=== PATIENT | female | born 2000 | race Hispanic/Latino ===

== ENCOUNTER 2021-02-07 07:57 | Outpatient (CLI) | payer OTHER ==
[2021-02-07 15:39] LABS: SARS-CoV-2 PCR by NAA Not Detected (NotDetected)
== END 2021-02-07 07:58 | disposition home or self-care (01) ==
LOC: CSHLAB 07:57
PROVIDERS: ATTEND Obstetrics & Gynecology
DX: Z20.822 Contact with and (suspected) exposure to COVID-19 (principal)
CPT/HCPCS: 87635; U0003; U0005

== ENCOUNTER 2021-02-12 19:00 | Inpatient (IN) | payer MEDICAID, OTHER, SELFPAY ==
[2021-02-13] MEDS ORDERED: Ibuprofen 800 MG TAB PO PRN (06:30)
[2021-02-13] MEDS ORDERED: hydrALAZINE 20 MG/ML VIAL SLOW IVP PRN ×2 (06:30→16:27)
[2021-02-13] MEDS ORDERED: NS / Oxytocin 40 units/1000ml 1,000 ML IV PRN (06:30)
[2021-02-13] MEDS ORDERED: Acetaminophen 500 MG TAB PO PRN (06:30)
[2021-02-13] MEDS ORDERED: Promethazine HCl 25 MG/ML VIAL IM PRN (06:30)
[2021-02-13] MEDS ORDERED: Lactated Ringer's 1,000 ML IV SCH (06:30)
[2021-02-13] MEDS ORDERED: Docusate 100 MG CAP PO PRN (06:30)
[2021-02-13] MEDS ORDERED: Misoprostol 200 MCG TAB PR PRN (06:30)
[2021-02-13] MEDS ORDERED: Ondansetron PF 4 MG/2 ML Vial IVP PRN ×2 (06:30→16:27)
[2021-02-13] MEDS ORDERED: Penicillin G Potassium 5 MILL.UNITS in Sodium Chloride 0.9% 100 ML IVPB SCH (06:30)
[2021-02-13] MEDS ORDERED: Lidocaine 1% (PF) 30 ML VIAL SC PRN (06:30)
[2021-02-13 06:47] VITALS: BMI 25.7
[2021-02-13 07:02] LABS: Hemoglobin 12.3 g/dL (12.0-15.5); Mean Corpuscular HGB CONC 33.8 g/dL (32.0-36.0); Mean Corpuscular Hemoglobin 29.6 pg (27.0-33.0); Mean Corpuscular Volume 87.7 fl (81.6-98.3); Mean Platelet Volume 12.1 fl (7.4-10.4); Platelet Count 195 10x3/uL (150-450); RBC Distribution Width 13.7 % (11.5-14.5); Red Blood Cell (RBC) Count 4.15 10x6/uL (3.90-5.03); White Blood Cell (WBC) Count 9.5 10x3/uL (3.5-10.5)
[2021-02-13] MEDS ORDERED: NS w/ Oxytocin 30 units 500 ML ONE ×2 (07:06→14:58)
[2021-02-13 08:04] LABS: Hep B Surf Ag Non-Reactive S/CO (NonReactive)
[2021-02-13 08:05] LABS: Syphilis Antibody Nonreactive (Nonreactive); Syphilis Antibody Index 0.04 S/CO (<1.00 Non-Reactive)
[2021-02-13 08:34] LABS: HBSAg Index 0.14 S/CO (0-0.99)
[2021-02-13] MEDS: Penicillin G 2.5 MILL.units 2.5 MILL.UNITS in Premix Bag 1 BAG IVPB SCH ×3 (12:35→20:54)
[2021-02-13] MEDS ORDERED: NS w/ Oxytocin 30 units 500 ML IVPB PRN (15:22)
[2021-02-13] MEDS ORDERED: NS w/ Oxytocin 30 units 500 ML IVPB SCH (15:30)
[2021-02-13] MEDS ORDERED: diphenhydrAMINE 25 MG CAP PO PRN (16:27)
[2021-02-13] MEDS ORDERED: Methylergonovine 0.2 MG TAB PO PRN (16:27)
[2021-02-13] MEDS ORDERED: Bisacodyl 10 MG SUPP PR PRN (16:27)
[2021-02-13] MEDS ORDERED: Preparation H Ointment 28 GM TUBE PR PRN (16:27)
[2021-02-13] MEDS ORDERED: Lanolin Ointment 7 GM TUBE TOP PRN (16:27)
[2021-02-13] MEDS ORDERED: Misoprostol 200 MCG TAB VAG PRN (16:27)
[2021-02-13] MEDS: Ibuprofen 800 MG TAB PO SCH (22:45)
[2021-02-14] MEDS: Ibuprofen 800 MG TAB PO SCH ×2 (05:26→14:30)
[2021-02-14] MEDS ORDERED: Prenatal Vitamin 1 TAB PO SCH (09:00)
[2021-02-14 11:32] VITALS: BP 107/57; TEMP 97.9
== END 2021-02-14 17:24 | disposition home or self-care (01) | DRG 806 ==
LOC: CSHLD 02-13 05:51 → CSHPP 02-13 17:36
PROVIDERS: ADMIT Family Medicine; ATTEND Family Medicine
PROC: 4A0HXCZ Measurement of Products of Conception, Cardiac Rate, External Approach (ICD-10-PCS; principal; 2021-02-14)
PROC: 10E0XZZ Delivery of Products of Conception, External Approach (ICD-10-PCS; 2021-02-14)
DX: O76 Abnormality in fetal heart rate and rhythm complicating labor and delivery (principal); Q21.0 Ventricular septal defect; Z37.0 Single live birth; O98.82 Other maternal infectious and parasitic diseases complicating childbirth; Z3A.39 39 weeks gestation of pregnancy; O75.89 Other specified complications of labor and delivery; B95.1 Streptococcus, group B, as the cause of diseases classified elsewhere; O99.02 Anemia complicating childbirth; D64.9 Anemia, unspecified
CPT/HCPCS: 36415; 85027; 86780; 86850; 86900; 86901; 87340; J2540; J2590; J3490

== ENCOUNTER 2024-07-06 17:31 | Emergency (ER) | payer SELFPAY ==
[2024-07-06 18:48] LABS: Bilirubin Neg (Negative); Blood, Urine 50 (Negative); Glucose, Urine (Dipstick) Normal (Negative); Ketone, Urine Negative (Negative); Leukocyte 25 (Negative); Nitrite Negative (Negative); Protein, Urine (Dipstick) 30 mg/dl (Neg-Trace); Specific Gravity, Urine 1.015 (1.005-1.030)
[2024-07-06 18:50] LABS: Clarity Hazy (Clear)
[2024-07-06 18:52] LABS: Pregnancy Test - Urine (BHCG) Negative (Negative); Pregu Control Background? CLEAR/WHITE (CLR/WHITE); Pregu Control Bar Appear? YES (CONTROL BAR); Specific Gravity 1.015 (1.002-1.036)
[2024-07-06] MEDS ORDERED: Metoclopramide HCl 10 MG (2 mL) VIAL ONE (18:54)
[2024-07-06] MEDS ORDERED: Lidocaine 4% Patch ONE (18:54)
[2024-07-06] MEDS ORDERED: Ketorolac Tromethamine 30 MG (1 mL) VIAL ONE (18:54)
[2024-07-06] MEDS ORDERED: diphenhydrAMINE 50 MG/ML VIAL ONE (18:54)
[2024-07-06 19:04] LABS: #Basophils 0.03 10x3/uL (0.0-0.2); #Eosinphils 0.15 10x3/uL (0.0-0.5); #Monocytes 0.49 10x3/uL (0.0-1.1); #Neutrophils 4.39 10x3/uL (1.5-8.4); %Basophils 0.4 % (0.0-2.0); %Eosinophils 1.8 % (0.0-6.0); %Lymphocytes 39.8 % (18.0-47.0); %Monocytes 5.8 % (0.0-10.0); %Neutrophils 52.1 % (40.0-75.0); Hematocrit 36.9 % (34.9-44.5); Hemoglobin 12.5 g/dL (12.0-15.5); Mean Corpuscular HGB CONC 33.9 g/dL (32.0-36.0); Mean Corpuscular Hemoglobin 31.2 pg (27.0-33.0); Mean Platelet Volume 10.5 fL (7.4-10.4); Platelet Count 236 10x3/uL (150-450); RBC Distribution Width 12.3 % (11.5-14.5); Red Blood Cell (RBC) Count 4.01 10x6/uL (3.90-5.03); White Blood Cell (WBC) Count 8.4 10x3/uL (3.5-10.5)
[2024-07-06 19:17] LABS: Bacteria/HPF None Seen HPF (None Seen); CAUTI Indications for Culture Pelvic or flank pain; RBC/HPF 0-3 HPF (0-3); Squamous Epithelial 0-3 HPF (0-3); WBC/HPF 0-3 HPF (0-3)
[2024-07-06 19:19] LABS: Urine Culture Reflex No No
[2024-07-06 19:23] LABS: ALT (SGPT) 23 U/L (8-55); AST (SGOT) 20 U/L (5-34); Albumin 4.1 g/dL (3.5-5.0); Alkaline Phosphatase 69 U/L (40-110); Anion Gap 12 mmol/L (10-20); BUN (Urea Nitrogen) 20 mg/dL (7.0-18.7); Bilirubin, Total 0.5 mg/dL (0.2-1.2); Calc. Creatinine Clearance 0 mL/min (70-130); Calcium 9.1 mg/dL (7.8-10.44); Carbon Dioxide 24 mmol/L (22-29); Chloride 107 mmol/L (98-107); Estimated GFR 61; Globulin 2.6 g/dL (2.4-3.5); Glucose 99 mg/dL (70-105); Lipase 30 U/L (8-78); Magnesium 1.9 mg/dL (1.6-2.6); Potassium 3.5 mmol/L (3.5-5.1); Protein, Total 6.7 g/dL (6.0-8.3); Sodium 139 mmol/L (136-145)
== END 2024-07-06 20:55 | disposition home or self-care (01) ==
LOC: CSHERS 17:31
DX: M54.41 Lumbago with sciatica, right side (principal); R51.9 Headache, unspecified; R10.9 Unspecified abdominal pain; R79.89 Other specified abnormal findings of blood chemistry
CPT/HCPCS: 36415; 80053; 81001; 81025; 83690; 83735; 85025; 86140; 96365; 96375; J1200; J1885; J2765

== ENCOUNTER 2024-12-03 16:55 | Emergency (ER) | payer OTHER, SELFPAY ==
[2024-12-03 17:34] LABS: Bilirubin Neg (Negative); Blood, Urine Negative (Negative); Glucose, Urine (Dipstick) Normal (Negative); Ketone, Urine Negative (Negative); Leukocyte 25 (Negative); Nitrite Negative (Negative); Protein, Urine (Dipstick) Negative (Neg-Trace)
[2024-12-03] MEDS ORDERED: Acetaminophen 325 MG TAB ONE (17:40)
[2024-12-03 17:45] LABS: Clarity Clear (Clear)
[2024-12-03 17:46] LABS: Bacteria/HPF None Seen HPF (None Seen); CAUTI Indications for Culture Pregnancy; RBC/HPF None Seen HPF (0-3); Squamous Epithelial 0-3 HPF (0-3); WBC/HPF None Seen HPF (0-3)
[2024-12-03 17:47] LABS: Urine Culture Reflex Yes Yes
[2024-12-03 17:55] LABS: #Basophils 0.04 10x3/uL (0.0-0.2); #Eosinophils 0.11 10x3/uL (0.0-0.5); #Monocytes 0.47 10x3/uL (0.0-1.1); #Neutrophils 5.93 10x3/uL (1.5-8.4); %Basophils 0.4 % (0.0-2.0); %Eosinophils 1.2 % (0.0-6.0); %Lymphocytes 26.7 % (18.0-47.0); %Monocytes 5.2 % (0.0-10.0); %Neutrophils 66.2 % (40.0-75.0); Hematocrit 36.3 % (34.9-44.5); Hemoglobin 12.4 g/dL (12.0-15.5); Mean Corpuscular HGB CONC 34.2 g/dL (32.0-36.0); Mean Corpuscular Hemoglobin 30.6 pg (27.0-33.0); Mean Corpuscular Volume 89.6 fL (81.6-98.3); Mean Platelet Volume 10.5 fL (7.4-10.4); Platelet Count 261 10x3/uL (150-450); RBC Distribution Width 12.4 % (11.5-14.5); Red Blood Cell (RBC) Count 4.05 10x6/uL (3.90-5.03); White Blood Cell (WBC) Count 8.98 10x3/uL (3.5-10.5)
[2024-12-03 18:14] LABS: ALT (SGPT) 12 U/L (Less than 34); AST (SGOT) 22 U/L (11-34); Albumin 4.2 g/dL (3.1-4.5); Alkaline Phosphatase 49 U/L (40-110); Anion Gap 12 mmol/L (10-20); BUN (Urea Nitrogen) 13 mg/dL (7.0-18.7); Bilirubin, Total 0.5 mg/dL (0.3-1.2); Calc. Creatinine Clearance 0 mL/min (70-130); Calcium 8.8 mg/dL (7.8-10.44); Carbon Dioxide 21 mmol/L (22-29); Chloride 108 mmol/L (98-107); Estimated GFR 128; Globulin 2.7 g/dL (2.4-3.5); Glucose 104 mg/dL (70-105); Protein, Total 6.9 g/dL (6.0-8.3); Sodium 137 mmol/L (136-145)
== END 2024-12-03 20:04 | disposition home or self-care (01) ==
LOC: CSHERS 16:55
DX: O20.8 Other hemorrhage in early pregnancy (principal); O34.81 Maternal care for other abnormalities of pelvic organs, first trimester; N83.12 Corpus luteum cyst of left ovary; Z3A.01 Less than 8 weeks gestation of pregnancy; Z55.6 Problems related to health literacy; Z75.3 Unavailability and inaccessibility of health-care facilities
CPT/HCPCS: 36415; 76856; 80053; 81001; 84702; 85025; 87086

== ENCOUNTER 2025-07-01 08:40 | Inpatient (IN) | payer MEDICAID, OTHER ==
[2025-07-01] MEDS ORDERED: hydrALAZINE 20 MG/ML VIAL SLOW IVP PRN ×3 (08:50→18:04)
[2025-07-01 10:23] VITALS: BMI 26.4
[2025-07-01] MEDS ORDERED: Ondansetron PF 4 MG/2 ML Vial IVP PRN (12:55)
[2025-07-01] MEDS ORDERED: Methylergonovine 0.2 MG/ML VIAL IM PRN ×2 (12:55→18:04)
[2025-07-01] MEDS ORDERED: Carboprost 250 MCG/ML AMP IM PRN (12:55)
[2025-07-01] MEDS ORDERED: Diphenoxylate HCl/Atropine Tablet PO PRN (12:55)
[2025-07-01] MEDS ORDERED: Lidocaine 1% (PF) 30 ML VIAL SC PRN (12:55)
[2025-07-01] MEDS ORDERED: Acetaminophen 500 MG TAB PO PRN (12:55)
[2025-07-01] MEDS ORDERED: Tranexamic Acid 1,000 MG/10 ML VIAL IVP PRN (12:55)
[2025-07-01] MEDS ORDERED: Oxytocin 30 units/NS 500 ML 500 ML IV SCH ×2 (13:00→18:15)
[2025-07-01 13:02] LABS: Hematocrit 38.0 % (34.9-44.5); Hemoglobin 12.6 g/dL (12.0-15.5); Mean Corpuscular Hemoglobin 29.4 pg (27.0-33.0); Mean Corpuscular Volume 88.8 fL (81.6-98.3); Platelet Count 218 10x3/uL (150-450); Red Blood Cell (RBC) Count 4.28 10x6/uL (3.90-5.03); White Blood Cell (WBC) Count 10.64 10x3/uL (3.5-10.5)
[2025-07-01 13:32] LABS: Syphilis Antibody Index 0.06 S/CO (<1.00 Non-Reactive)
[2025-07-01 13:34] LABS: Hep B Surf Ag - L&D Non-Reactive S/CO (NonReactive)
[2025-07-01] MEDS: Oxytocin 30 units/NS 500 ML 500 ML IV SCH (13:48)
[2025-07-01 13:52] LABS: HIV (1/2) Antibody/Antigen Non-Reactive (NonReactive); HIV 1/2 INDEX 0.11 S/CO (<1.00)
[2025-07-01] MEDS ORDERED: Bisacodyl 10 MG SUPP PR PRN (18:04)
[2025-07-01] MEDS ORDERED: Boostrix 0.5 ML (Tdap) VIAL (>/=7 yrs of age) IM ONE (18:04)
[2025-07-01] MEDS ORDERED: Milk Of Magnesia 30 ML UDCUP PO PRN (18:04)
[2025-07-01] MEDS: Ibuprofen 800 MG TAB PO SCH (21:21)
[2025-07-02] MEDS: Ferrous Sulfate 325 MG TAB PO SCH (08:10)
[2025-07-03 08:01] VITALS: BP 129/61; TEMP 98
== END 2025-07-03 14:00 | disposition home or self-care (01) | DRG 807 ==
LOC: CSHLD/OP 08:40 → CSHLD 11:52 → CSHPP 20:20
PROVIDERS: ADMIT Obstetrics & Gynecology; ATTEND Obstetrics & Gynecology
PROC: 10E0XZZ Delivery of Products of Conception, External Approach (ICD-10-PCS; principal; 2025-07-01)
PROC: 10907ZC Drainage of Amniotic Fluid, Therapeutic from Products of Conception, Via Natural or Artificial Opening (ICD-10-PCS; 2025-07-01)
PROC: 4A1HXCZ Monitoring of Products of Conception, Cardiac Rate, External Approach (ICD-10-PCS; 2025-07-01)
DX: O99.42 Diseases of the circulatory system complicating childbirth (principal); Z37.0 Single live birth; O62.3 Precipitate labor; I49.3 Ventricular premature depolarization; Z3A.36 36 weeks gestation of pregnancy; Z79.899 Other long term (current) drug therapy; Z79.82 Long term (current) use of aspirin; Z98.890 Other specified postprocedural states; Z90.89 Acquired absence of other organs
CPT/HCPCS: 85027; 86780; 86850; 86900; 86901; 87340; 87389; 99285; J2590; J7120